=== PATIENT | female | born 1985 | race Hispanic/Latino ===

== ENCOUNTER 2019-01-09 06:32 | Emergency (ER) | payer SELFPAY ==
[2019-01-09 07:02] LABS: #Basophils 0.1 thou/uL (0.0-0.2); #Eosinphils 0.2 thou/uL (0.0-0.7); #Lymphocytes 2.6 thou/uL (1.20-3.40); #Monocytes 0.7 thou/uL (0.11-0.59); #Neutrophils 5.4 thou/uL (1.40-6.50); %Basophils 0.6 % (0.0-1.0); %Eosinophils 2.6 % (0.0-10.0); %Lymphocytes 28.9 % (21.0-51.0); %Monocytes 7.7 % (0.0-10.0); %Neutrophils 60.3 % (42.0-75.0); Hemoglobin 9.9 g/dL (12.0-16.0); Mean Corpuscular HGB CONC 33.6 g/dL (32.0-36.0); Mean Corpuscular Hemoglobin 26.4 pg (27.0-31.0); Mean Corpuscular Volume 78.4 fL (78.0-98.0); Mean Platelet Volume 8.1 fL (7.4-10.4); Platelet Count 355 thou/uL (130-400); RBC Distribution Width 14.9 % (11.5-14.5); Red Blood Cell (RBC) Count 3.76 mill/uL (4.20-5.40); White Blood Cell (WBC) Count 8.9 thou/uL (4.8-10.8)
[2019-01-09 07:14] LABS: BHCG - Serum Negative (NEGATIVE); Pregs Control Background? CLEAR/WHITE (CLR/WHITE); Pregs Control Bar Appear? YES (CONTROL BAR)
[2019-01-09 07:17] LABS: ALT (SGPT) 9 U/L (8-55); AST (SGOT) 9 U/L (5-34); Albumin 4.2 g/dL (3.5-5.0); Alkaline Phosphatase 91 U/L (40-150); Anion Gap 14 mmol/L (10-20); BUN (Urea Nitrogen) 10 mg/dL (7.0-18.7); Bilirubin, Total 0.3 mg/dL (0.2-1.2); Calc. Creatinine Clearance 0 mL/min (70-130); Calcium 9.4 mg/dL (7.8-10.44); Carbon Dioxide 23 mmol/L (22-29); Chloride 104 mmol/L (98-107); Estimated GFR-MDRD Greater than 90; Globulin 3.8 g/dL (2.4-3.5); Glucose 112 mg/dL (70-105); Lipase 37 U/L (8-78); Potassium 3.6 mmol/L (3.5-5.1); Sodium 137 mmol/L (136-145)
[2019-01-09] MEDS ORDERED: Ondansetron PF 4 MG/2 ML Vial ONE (07:36)
[2019-01-09] MEDS ORDERED: Morphine 4 MG/ML VIAL ONE (07:36)
--- NOTE | 2019-01-09 08:27 | RAD ---
CHEST 1 VIEW PORTABLE: HISTORY: Right upper quadrant pain and guarding. Shortness of breath. FINDINGS: Heart size is normal. The lungs are clear. No pneumonia, edema, pleural effusion, or other acute pr ocess. IMPRESSION: No acute intrathoracic disease. POS: [facility]
--- NOTE | 2019-01-09 08:30 | ULT ---
RIGHT UPPER QUADRANT ULTRASOUND: HISTORY: Right upper quadrant pain and shortness of breath. FINDINGS: Hepatomegaly with heterogeneous liver echogenicity, evidence for nonspecific hepatic parenchymal dise ase. The gallbladder is moderately contracted but a somewhat thickened gallbladder wall. The techno logist indicates a positive Noel's sign. The common duct is not dilated. Visualized pancreas and right kidney are unremarkable. IMPRESSION: Hepatomegaly with coarse altered echogenicity, evidence for nonspecific hepatic parenchymal process. Contracted gallbladder with minimal thickened wall and evidence for positive Noel's sign. Conside r followup nuclear medicine hepatobiliary scan for further assessment. POS: [facility]
== END 2019-01-09 09:34 | disposition home or self-care (01) ==
LOC: ERS 06:32
DX: R10.11 Right upper quadrant pain (principal)
CPT/HCPCS: 71045; 76705; 80053; 83690; 84703; 85025; 93005; 96361; 96374; 96375; J2270; J2405